=== PATIENT | male | born 1960 | race Native Hawaiian/Other Pacific Islander ===

== ENCOUNTER 2016-12-01 03:50 | Inpatient (IN) | payer OTHER ==
[2016-12-01 05:51] LABS: Basophils % (Auto) 0.7 % (0.0-1.8); Eosinophils % (Auto) 14.9 % (0.0-4.3); Mean Corpuscular HGB Conc 34 % (32-34); Mean Corpuscular Hemoglobin 31 pg (28-32); Mean Corpuscular Volume 91 fl (84-94); Platelet Count 231 K/mm3 (140-440); Red Blood Count 3.85 M/mm3 (3.65-5.03); Red Cell Distribution Width 13.2 % (13.2-15.2)
[2016-12-01 06:27] LABS: Anion Gap 19 mmol/L; Blood Urea Nitrogen 33 mg/dL (9-20); Calcium 9.2 mg/dL (8.4-10.2); Carbon Dioxide 26 mmol/L (22-30); Chloride 99.8 mmol/L (98-107); Glucose 162 mg/dL (75-100); Potassium 5.8 mmol/L (3.6-5.0); Sodium 139 mmol/L (137-145)
--- NOTE | 2016-12-01 06:38 | XRay Report ---
FINAL REPORT PROCEDURE: XR FOOT 2V LT TECHNIQUE: LEFT foot radiographs, AP and lateral views. HISTORY: Left foot swelling COMPARISON: No prior studies are available for comparison. FINDINGS: Fracture (s) and/or Dislocation(s): None . Alignment: Normal. Joint space(s): Normal. Soft tissues: Normal. Bone mineralization: Normal. Foreign bodies: None. Calcaneal spurring: None. IMPRESSION: Normal Examination.
[2016-12-01] MEDS ORDERED: UNASYN/NS 3 GM/100 ML 3 GM/100 ML BAG IV ONE (09:14)
[2016-12-01] MEDS ORDERED: VANCOMYCIN VIAL IV ONE (09:14)
--- NOTE | 2016-12-01 09:17 | Emergency Department Report ---
ED Extremity Problem HPI - General Chief complaint: Extremity Injury, Lower Stated complaint: LT FOOT INJURY Time Seen by Provider: 12/01/16 09:06 Source: patient, family Mode of arrival: Ambulatory Limitations: No Limitations - History of Present Illness Initial comments: 56-year-old male presents to the emergency Department with family for evaluation of a wound to his left foot. Patient has had a blister on the sole of his left foot for approximately 2 weeks. 2 days ago, the blister started to drain and the foot has become swollen. Family reports that it is beginning to turn red and purple. He reports mild pain to the foot. He denies fever. There are no other complaints. -: Gradual, week(s) (2) Location: left, other (foot) History of Same: No Radiation: none Severity scale (0 -10): 8 Quality: aching Consistency: constant Improves with: nothing Worsens with: nothing Associated Symptoms: denies other symptoms - Related Data Home Medications Medication Instructions Recorded Confirmed Last Taken glipiZIDE [Glucotrol] 10 mg PO BID 06/24/15 12/01/16 06/24/15 08:00 5mg metFORMIN 1,000 mg PO BID 06/24/15 12/01/16 Unknown Brimonidine Tartrate 0.2% 1 drop OS BID 12/01/16 12/01/16 Unknown Lisinopril 40 mg PO DAILY 12/01/16 12/01/16 Unknown Timolol 0.5% 1 drop OS BID 12/01/16 12/01/16 Unknown acetaZOLAMIDE 250 mg PO BID 12/01/16 12/01/16 Unknown Allergies Allergy/AdvReac Type Severity Reaction Status Date / Time No Known Allergies Allergy Verified 06/22/15 13:13 ED Review of Systems ROS: Stated complaint: RT FOOT INJURY Other details as noted in HPI Comment: All other systems reviewed and negative Musculoskeletal: as per HPI (L foot pain) Skin: as per HPI ED Past Medical Hx - Past Medical History Previous Medical History?: Yes Hx Hypertension: Yes Hx Congestive Heart Failure: No Hx Diabetes: Yes Hx Asthma: No Hx COPD: No Additional medical history: Rheumatic fever. valvular cardiac disease, Glaucoma - Surgical History Past Surgical History?: No - Family History Family history: no significant - Social History Smoking Status: Never Smoker Substance Use Type: None - Medications Home Medications: Home Medications Medication Instructions Recorded Confirmed Last Taken Type glipiZIDE [Glucotrol] 10 mg PO BID 06/24/15 12/01/16 06/24/15 08:00 History 5mg metFORMIN 1,000 mg PO BID 06/24/15 12/01/16 Unknown History Brimonidine Tartrate 0.2% 1 drop OS BID 12/01/16 12/01/16 Unknown History Lisinopril 40 mg PO DAILY 12/01/16 12/01/16 Unknown History Timolol 0.5% 1 drop OS BID 12/01/16 12/01/16 Unknown History acetaZOLAMIDE 250 mg PO BID 12/01/16 12/01/16 Unknown History ED Physical Exam - General Limitations: No Limitations General appearance: alert, in no apparent distress - Head Head exam: Present: atraumatic, normocephalic - Eye Eye exam: Present: normal appearance, PERRL, EOMI - ENT ENT exam: Present: normal exam, normal orophraynx, mucous membranes moist - Neck Neck exam: Present: normal inspection, full ROM. Absent: tenderness - Respiratory Respiratory exam: Present: normal lung sounds bilaterally. Absent: respiratory distress - Cardiovascular Cardiovascular Exam: Present: regular rate, normal rhythm, normal heart sounds - GI/Abdominal GI/Abdominal exam: Present: soft, normal bowel sounds. Absent: distended, tenderness - Extremities Exam Extremities exam: Present: full ROM, other (large blister on the plantar surface of the left foot across the MTP joints. This blister appears to have drained spontaneously. There is surrounding erythema and discoloration. Left foot is edematous. There is no streaking erythema proximally. Remainder of extremities are unremarkable.). Absent: tenderness - Back Exam Back exam: Present: normal inspection, full ROM. Absent: tenderness - Neurological Exam Neurological exam: Present: alert, oriented X3. Absent: motor sensory deficit - Skin Skin exam: Present: warm, dry ED Course Vital Signs 12/01/16 12/01/16 04:57 08:02 Temperature 87 F L 98.4 F Pulse Rate 87 79 Respiratory 16 18 Rate Blood Pressure 165/87 Blood Pressure 165/87 150/84 [Left] O2 Sat by Pulse 100 100 Oximetry ED Medical Decision Making - Lab Data Result diagrams: 12/01/16 05:39 12/01/16 05:39 - Medical Decision Making Lab results reviewed and discussed with the patient and family. Patient is being started on IV and biotics. He is to be admitted by the hospitalist for wound care and additional antibiotic therapy. - Differential Diagnosis foot cellulitis, diabetic foot ulcer Critical care attestation.: If time is entered above; I have spent that time in minutes in the direct care of this critically ill patient, excluding procedure time. ED Disposition Clinical Impression: Cellulitis of left foot excluding toes Diabetic foot ulcer Qualifiers: Diabetic foot ulcer location: midfoot Diabetes mellitus type: type 2 Laterality : left Non-pressure ulcer stage: limited to breakdown of skin Qualified Code(s) : E11.621 - Type 2 diabetes mellitus with foot ulcer Disposition: -09 OP ADMIT IP TO THIS HOSP Is pt being admited?: Yes Condition: Stable Instructions: Diabetes Mellitus Type 2 in Adults (ED) Time of Disposition: 09:16
[2016-12-01] MEDS ORDERED: VANCOMYCIN 1,250 MG in NACL 0.9% 250ML 250 ML IV ONE (09:45)
[2016-12-01] MEDS ORDERED: VANCOMYCIN PHARMACY TO DOSE IV SCH (10:00)
[2016-12-01] MEDS ORDERED: VANCOMYCIN/NS 1 GM/250 ML 1 GM/250 ML BAG IV SCH (10:00)
--- NOTE | 2016-12-01 11:29 | History and Physical Report ---
History of Present Illness Date of examination: 12/01/16 Date of admission: 12/01/16 09:17 History of present illness: This is a 56-year-old male presents to the emergency room with complaints of left foot pain that has progressively worsened over the past several days. Patient reports a blister that occurred on the ventral surface of the foot approximately 2 weeks ago. Patient reports drainage from that area approximately 2 days ago and progressive swelling of the left foot. Patient also reports pain and tenderness to the ventral and dorsal surfaces of the foot. Patient denies any fever or chills. No cough, shortness. No headache or visual disturbances. No chest pain or shortness of breath. Patient reports some erythema to the ventral surface of the foot only. Past History Past Medical History: diabetes, hypertension Past Surgical History: No surgical history Social history: no significant social history Family history: no significant family history Medications and Allergies Allergies Allergy/AdvReac Type Severity Reaction Status Date / Time No Known Allergies Allergy Verified 06/22/15 13:13 Home Medications Medication Instructions Recorded Confirmed Last Taken Type glipiZIDE [Glucotrol] 10 mg PO BID 06/24/15 12/01/16 06/24/15 08:00 History 5mg metFORMIN 1,000 mg PO BID 06/24/15 12/01/16 Unknown History Brimonidine Tartrate 0.2% 1 drop OS BID 12/01/16 12/01/16 Unknown History Lisinopril 40 mg PO DAILY 12/01/16 12/01/16 Unknown History Timolol 0.5% 1 drop OS BID 12/01/16 12/01/16 Unknown History acetaZOLAMIDE 250 mg PO BID 12/01/16 12/01/16 Unknown History Active Meds: Active Medications Vancomycin HCl (Vancomycin/Ns 1 Gm/250 Ml) 1 gm in 250 mls @ 166.667 mls/hr IV Q12H [facility] Vancomycin HCl 1,250 mg/ (Sodium Chloride) 275 mls @ 166.667 mls/hr IV ONCE.ED ONE Stop: 12/01/16 11:23 Last Admin: 12/01/16 10:45 Dose: 166.667 mls/hr Vancomycin HCl (Vancomycin Pharmacy To Dose) 1 each IV PKCONSULT [facility] PRN Reason: Protocol Review of Systems All systems: negative Exam - Constitutional Vitals: Temp Pulse Resp BP Pulse Ox 97.9 F 78 18 158/82 96 12/01/16 11:17 12/01/16 11:17 12/01/16 11:17 12/01/16 11:17 12/01/16 11:17 General appearance: Present: no acute distress, well-nourished - EENT Eyes: Present: PERRL ENT: hearing intact, clear oral mucosa - Neck Neck: Present: supple, normal ROM - Respiratory Respiratory effort: normal Respiratory: bilateral: CTA - Cardiovascular Heart Sounds: Present: S1 & S2. Absent: rub, click - Extremities Extremities: pulses symmetrical, abnormal (large blister on the plantar surface of the left foot across the MTP joints. This blister appears to have drained spontaneously. There is surrounding erythema and discoloration. Left foot is edematous. There is no streaking erythema proximally. Remainder of extremities are unremarkable.) Peripheral Pulses: within normal limits - Abdominal General gastrointestinal: Present: soft, non-tender, non-distended, normal bowel sounds Male genitourinary: Present: normal - Integumentary Integumentary: Present: clear, warm, dry - Musculoskeletal Musculoskeletal: gait normal, strength equal bilaterally - Psychiatric Psychiatric: appropriate mood/affect, intact judgment & insight - Neurologic Neurologic: CNII-XII intact, moves all extremities Results - Labs CBC & Chem 7: 12/01/16 05:39 12/01/16 05:39 Labs: Laboratory Last Values WBC 11.0 K/mm3 (4.5-11.0) 12/01/16 05:39 RBC 3.85 M/mm3 (3.65-5.03) 12/01/16 05:39 Hgb 12.0 gm/dl (11.8-15.2) 12/01/16 05:39 Hct 35.0 % (35.5-45.6) L 12/01/16 05:39 MCV 91 fl (84-94) 12/01/16 05:39 MCH 31 pg (28-32) 12/01/16 05:39 MCHC 34 % (32-34) 12/01/16 05:39 RDW 13.2 % (13.2-15.2) 12/01/16 05:39 Plt Count 231 K/mm3 (140-440) 12/01/16 05:39 Lymph % (Auto) 20.6 % (13.4-35.0) 12/01/16 05:39 [place] % (Auto) 6.4 % (0.0-7.3) 12/01/16 05:39 Eos % (Auto) 14.9 % (0.0-4.3) H 12/01/16 05:39 Baso % (Auto) 0.7 % (0.0-1.8) 12/01/16 05:39 Lymph # 2.3 K/mm3 (1.2-5.4) 12/01/16 05:39 [place] # 0.7 K/mm3 (0.0-0.8) 12/01/16 05:39 Eos # 1.6 K/mm3 (0.0-0.4) H 12/01/16 05:39 Baso # 0.1 K/mm3 (0.0-0.1) 12/01/16 05:39 Seg Neutrophils % 57.4 % (40.0-70.0) 12/01/16 05:39 Seg Neutrophils # 6.3 K/mm3 (1.8-7.7) 12/01/16 05:39 Sodium 139 mmol/L (137-145) 12/01/16 05:39 Potassium 5.8 mmol/L (3.6-5.0) H 12/01/16 05:39 Chloride 99.8 mmol/L (98-107) 12/01/16 05:39 Carbon Dioxide 26 mmol/L (22-30) 12/01/16 05:39 BUN 33 mg/dL (9-20) H 12/01/16 05:39 Creatinine 1.2 mg/dL (0.8-1.5) 12/01/16 05:39 Estimated GFR > 60 ml/min 12/01/16 05:39 BUN/Creatinine Ratio 27.50 % 12/01/16 05:39 Glucose 162 mg/dL (75-100) H 12/01/16 05:39 POC Glucose 180 (70-105) H 12/01/16 04:53 Calcium 9.2 mg/dL (8.4-10.2) 12/01/16 05:39 Assessment and Plan Assessment and plan: Left lower extremity abscess/cellulitis. Patient will be continued on IV antibiotics and monitor closely. Orthopedics consultation. Check MRI for further evaluation. Sepsis. We will follow-up blood cultures and lactic acid levels. Continue IV antibiotics. Diabetes mellitus type 2. Continue Accu-Cheks and sliding scale insulin. Hypertension. Resume antihypertensive medications of lisinopril.
[2016-12-01] MEDS ORDERED: MILK OF MAGNESIA PO PRN (11:30)
[2016-12-01] MEDS ORDERED: D50W (25GM) IV PRN (11:30)
[2016-12-01] MEDS ORDERED: TYLENOL PO PRN (11:30)
[2016-12-01] MEDS ORDERED: ZOFRAN IV PRN (11:30)
[2016-12-01] MEDS ORDERED: DULCOLAX PR PRN (11:30)
[2016-12-01] MEDS: NACL 0.9% 1000 ML 1,000 ML IV SCH (16:31)
[2016-12-01] MEDS: GLUCOPHAGE PO SCH (16:31)
[2016-12-01] MEDS: GLUCOTROL PO SCH (16:32)
[2016-12-01] MEDS: ZESTRIL PO SCH (16:32)
[2016-12-01] MEDS: LOVENOX SUB-Q SCH (16:33)
[2016-12-01] MEDS: VANCOMYCIN/NS 1 GM/250 ML 1 GM/250 ML BAG IV SCH (22:45)
[2016-12-01] MEDS: ALPHAGAN P 0.15% OS SCH (22:47)
[2016-12-01] MEDS: TIMOPTIC OS SCH (22:48)
[2016-12-01] MEDS: DIAMOX PO SCH (22:49)
[2016-12-02] MEDS: NACL 0.9% 1000 ML 1,000 ML IV SCH (07:56)
[2016-12-02] MEDS: GLUCOPHAGE PO SCH ×2 (08:00→17:13)
--- NOTE | 2016-12-02 09:24 | Admit Criteria Form ---
Admission Criteria Documentation: CELLULITIS Clinical Indications for Admission to Inpatient Care (Place 'X' for any and all applicable criteria): Admission is indicated for ANY ONE of the following(1)(2)(3)(4)(5): [X]I. Limb-threatening infection [X]II. High-risk comorbid condition as indicated by ANY ONE of the following: [X ]a) Uncontrolled diabetes (eg, HbA1c greater than 10% (0.1)) [ ]b) Cirrhosis [ ]c) Neutropenia [ ]d) Asplenia [ ]e) Immunosuppression [ ]f) Symptomatic heart failure [ ]III. Failure of outpatient therapy as indicated by ALL of the following: [ ]a) Progression or no improvement after adequate trial (minimum of 48 hours, with longer period for stable lower extremity infection) [ ]b) Adequate antibiotic regimen as indicated by use of ANY ONE of the following: [ ]i) First-generation cephalosporin (e.g., cephalexin) [ ]ii) Antistaphylococcal penicillin (e.g., dicloxacillin) [ ]iii) Penicillin-allergic patient regimen (clindamycin, extended-spectrum fluoroquinolone, or doxycycline) [ ]iv) Resistant organism (eg, methicillin-resistant Staphylococcus aureus) regimen (6) [ ]c) Outpatient intravenous therapy regimen is not appropriate due to ANY ONE of the following. (7)(8)(9)(10): [ ]i) It was tried and was not successful (eg, progression of infection). [ ]ii) It is not available or cannot be arranged in a clinically appropriate time frame (e.g., the next day). [ ]iii) Clinical presentation (eg, acuity of infection, rapidity of progression, confirmed or suspected bacteremia) is judged to require ALL of the following: [ ]1) Immediate initiation of intravenous therapy ( eg, cannot wait for next day) [ ]2) Intensity of patient monitoring and observation (eg, vital sign measurement, checks for infection progression) that cannot be provided at other than inpatient level of care [ ]IV. Mental status changes [ ]V. Bacteremia [ ]. Hemodynamic instability [ ]VII. Suspected necrotizing soft tissue infection (e.g., gas in tissue)(11)( 12) [ ]VIII. Orbital infection (13)(14) [ ]IX. Associated surgical procedure (e.g., abscess drainage, debridement) not amenable to outpatient, emergency department, or observation care [ ]X. Cutaneous gangrene [ ]XI. High fever (temperature greater than 39.5 degrees C (103.1 degrees F) (oral)) not responsive to outpatient, emergency department, or observation care therapy [ ]XIII. Inpatient admission required rather than observation care (Also use Cellulitis: Observation Care as appropriate) because of ANY ONE of the following : [ ]a) Periorbital or perineal infection that is severe or worsening [ ]b) Severe pain requiring acute inpatient management [ ]c) IV fluid to replace significant ongoing (e.g., for over 24 hours) losses (greater than 3L/m2 per day) [ ]d) Compartment syndrome monitoring (17) [ ]e) Strict or protective (eg, laminar flow) isolation [ ]f) Urgent debridement or skin grafting [ ]g) Bone or joint debridement [ ]h) Immediate inpatient surgery [ ]i) Other condition, treatment or monitoring requiring inpatient admission Extended stay beyond goal length of stay may be needed for (1)(18): [ ]a) Necrotizing soft tissue infection or fasciitis [ ]b) Gram-negative infection [ ]c) Methicillin-resistant Staphylococcal aureus (MRSA) infection [ ]d) Peripheral venous insufficiency with cellulitis [ ]e) Extensive edema [ ]f) Sepsis or continued Hemodynamic instability [ ]g) Continued high fever or mental status change [ ]h) Bacteremia [ ]i) Active serious comorbid conditions ( eg, heart failure, renal insufficiency) The original [employer] content created by [employer] has been revised. The portions of the content which have been revised are identified through the use of italic text or in bold, and [facility] has neither reviewed nor approved the modified material. All other unmodified content is copyright [email or web address] Please see references footnoted in the original [facility] [employer] edition 2016 Admission Criteria Met: Yes
--- NOTE | 2016-12-02 10:18 | Progress Note ---
Assessment and Plan Assessment and plan: Left lower extremity abscess/cellulitis. Patient will be continued on IV antibiotics and monitor closely. Orthopedics consultation pending. Check MRI for further evaluation. Sepsis. We will follow-up blood cultures and lactic acid levels. Continue IV antibiotics. Diabetes mellitus type 2. Continue Accu-Cheks and sliding scale insulin. Hypertension. Continue antihypertensive medications of lisinopril. History Interval history: No new issues overnight. Hospitalist Physical - Constitutional Vitals: Temp Pulse Resp BP Pulse Ox 97.7 F 70 16 186/84 98 12/02/16 08:00 12/02/16 08:00 12/02/16 08:00 12/02/16 08:00 12/02/16 08:00 General appearance: Present: no acute distress, well-nourished - EENT Eyes: Present: PERRL, EOM intact ENT: hearing intact, clear oral mucosa, dentition normal - Neck Neck: Present: supple, normal ROM - Respiratory Respiratory effort: normal Respiratory: bilateral: CTA - Cardiovascular Rhythm: regular Heart Sounds: Present: S1 & S2. Absent: gallop, rub - Extremities Extremities: no ischemia, No edema, Full ROM - Abdominal General gastrointestinal: soft, non-tender, non-distended, normal bowel sounds - Integumentary Integumentary: Present: clear, warm, dry - Neurologic Neurologic: CNII-XII intact, moves all extremities Results - Labs CBC & Chem 7: 12/01/16 05:39 12/01/16 05:39 Labs: Laboratory Last Values WBC 11.0 K/mm3 (4.5-11.0) 12/01/16 05:39 RBC 3.85 M/mm3 (3.65-5.03) 12/01/16 05:39 Hgb 12.0 gm/dl (11.8-15.2) 12/01/16 05:39 Hct 35.0 % (35.5-45.6) L 12/01/16 05:39 MCV 91 fl (84-94) 12/01/16 05:39 MCH 31 pg (28-32) 12/01/16 05:39 MCHC 34 % (32-34) 12/01/16 05:39 RDW 13.2 % (13.2-15.2) 12/01/16 05:39 Plt Count 231 K/mm3 (140-440) 12/01/16 05:39 Lymph % (Auto) 20.6 % (13.4-35.0) 12/01/16 05:39 [place] % (Auto) 6.4 % (0.0-7.3) 12/01/16 05:39 Eos % (Auto) 14.9 % (0.0-4.3) H 12/01/16 05:39 Baso % (Auto) 0.7 % (0.0-1.8) 12/01/16 05:39 Lymph # 2.3 K/mm3 (1.2-5.4) 12/01/16 05:39 [place] # 0.7 K/mm3 (0.0-0.8) 12/01/16 05:39 Eos # 1.6 K/mm3 (0.0-0.4) H 12/01/16 05:39 Baso # 0.1 K/mm3 (0.0-0.1) 12/01/16 05:39 Seg Neutrophils % 57.4 % (40.0-70.0) 12/01/16 05:39 Seg Neutrophils # 6.3 K/mm3 (1.8-7.7) 12/01/16 05:39 Sodium 139 mmol/L (137-145) 12/01/16 05:39 Potassium 5.8 mmol/L (3.6-5.0) H 12/01/16 05:39 Chloride 99.8 mmol/L (98-107) 12/01/16 05:39 Carbon Dioxide 26 mmol/L (22-30) 12/01/16 05:39 BUN 33 mg/dL (9-20) H 12/01/16 05:39 Creatinine 1.2 mg/dL (0.8-1.5) 12/01/16 05:39 Estimated GFR > 60 ml/min 12/01/16 05:39 BUN/Creatinine Ratio 27.50 % 12/01/16 05:39 Glucose 162 mg/dL (75-100) H 12/01/16 05:39 POC Glucose 116 (70-105) H 12/02/16 06:01 Calcium 9.2 mg/dL (8.4-10.2) 12/01/16 05:39
[2016-12-02] MEDS: VANCOMYCIN/NS 1 GM/250 ML 1 GM/250 ML BAG IV SCH (10:50)
[2016-12-02] MEDS ORDERED: PNEUMOVAX 23 IM ONE (12:00)
[2016-12-02] MEDS: UNASYN/NS 3 GM/100 ML 3 GM/100 ML BAG IV SCH ×3 (12:00→23:06)
[2016-12-02 12:55] LABS: Anion Gap 16 mmol/L; Blood Urea Nitrogen 20 mg/dL (9-20); Calcium 8.4 mg/dL (8.4-10.2); Carbon Dioxide 24 mmol/L (22-30); Chloride 106.3 mmol/L (98-107); Glucose 184 mg/dL (75-100); Potassium 5.1 mmol/L (3.6-5.0); Sodium 141 mmol/L (137-145)
[2016-12-02 12:59] LABS: Hematocrit 35.1 % (35.5-45.6); Hemoglobin 11.9 gm/dl (11.8-15.2); Mean Corpuscular HGB Conc 34 % (32-34); Mean Corpuscular Hemoglobin 31 pg (28-32); Mean Corpuscular Volume 92 fl (84-94); Platelet Count 211 K/mm3 (140-440); Red Blood Count 3.83 M/mm3 (3.65-5.03); Red Cell Distribution Width 13.4 % (13.2-15.2); White Blood Count 7.6 K/mm3 (4.5-11.0)
[2016-12-02 14:34] LABS: Basophils % (Manual) 0 % (0.0-1.8); Blastocytes % (Manual) 0 %; Diff Status Complete; Platelet Estimate Consistent w Auto; RBC Morphology Normal
[2016-12-02] MEDS: LOVENOX SUB-Q SCH (15:28)
[2016-12-02] MEDS: DIAMOX PO SCH ×2 (15:29→22:57)
[2016-12-02] MEDS: ZESTRIL PO SCH (15:29)
[2016-12-02] MEDS: TIMOPTIC OS SCH ×2 (15:30→22:58)
[2016-12-02] MEDS: ALPHAGAN P 0.15% OS SCH ×2 (15:31→22:57)
[2016-12-02] MEDS: GLUCOTROL PO SCH ×2 (17:13→17:14)
--- NOTE | 2016-12-02 18:16 | Consultation ---
History of Present Illness - [facility] Consult date: 12/02/16 History of present illness: 56-year-old male presents to the emergency room with complaints of left foot pain that has progressively worsened over the past several days. Patient reports a blister that occurred on the ventral surface of the foot approximately 2 weeks ago. Patient reports drainage from that area approximately 2 days ago and progressive swelling of the left foot. Patient also reports pain and tenderness to the ventral and dorsal surfaces of the foot. Patient denies any fever or chills. Past History Past Medical History: diabetes, hypertension Past Surgical History: No surgical history Social history: no significant social history Family history: no significant family history Medications and Allergies Allergies Allergy/AdvReac Type Severity Reaction Status Date / Time No Known Allergies Allergy Verified 06/22/15 13:13 Home Medications Medication Instructions Recorded Confirmed Last Taken Type glipiZIDE [Glucotrol] 10 mg PO BID 06/24/15 12/01/16 06/24/15 08:00 History 5mg metFORMIN 1,000 mg PO BID 06/24/15 12/01/16 Unknown History Brimonidine Tartrate 0.2% 1 drop OS BID 12/01/16 12/01/16 Unknown History Lisinopril 40 mg PO DAILY 12/01/16 12/01/16 Unknown History Timolol 0.5% 1 drop OS BID 12/01/16 12/01/16 Unknown History acetaZOLAMIDE 250 mg PO BID 12/01/16 12/01/16 Unknown History Active Meds: Active Medications Acetaminophen (Tylenol) 650 mg PO Q4H PRN PRN Reason: Pain MILD(1-3)/Fever >100.5/[place] Acetazolamide (Diamox) 250 mg PO BID [facility] Last Admin: 12/02/16 15:29 Dose: 250 mg Bisacodyl (Dulcolax) 10 mg SC QDAY PRN PRN Reason: Constipation unrelieved by MOM Brimonidine Tartrate (Alphagan P 0.15%) 1 drops OS BID [facility] Last Admin: 12/02/16 15:31 Dose: 1 drops Dextrose (D50w (25gm)) 50 ml IV PRN PRN PRN Reason: Hypoglycemia Enoxaparin Sodium (Lovenox) 40 mg SUB-Q Q24H [facility] Last Admin: 12/02/16 15:28 Dose: 40 mg Glipizide (Glucotrol) 10 mg PO BIDDIAB [facility] Last Admin: 12/02/16 17:14 Dose: Not Given Vancomycin HCl (Vancomycin/Ns 1 Gm/250 Ml) 1 gm in 250 mls @ 166.667 mls/hr IV Q12H [facility] Last Admin: 12/02/16 10:50 Dose: 166.667 mls/hr Sodium Chloride (Nacl 0.9% 1000 Ml) 1,000 mls @ 75 mls/hr IV DIRECT [facility] Last Admin: 12/02/16 07:56 Dose: 75 mls/hr Ampicillin Sodium/Sulbactam Sodium (Unasyn/Ns 3 Gm/100 Ml) 3 gm in 100 mls @ 200 mls/hr IV Q6HR [facility] Last Admin: 12/02/16 17:56 Dose: 200 mls/hr Insulin Human Regular (Novolin R) 0 units SUB-Q ACHS [facility] PRN Reason: Protocol Last Admin: 12/01/16 22:51 Dose: Not Given Lisinopril (Zestril) 40 mg PO QDAY [facility] Last Admin: 12/02/16 15:29 Dose: 40 mg Magnesium Hydroxide (Milk Of Magnesia) 30 ml PO Q4H PRN PRN Reason: Constipation Metformin HCl (Glucophage) 1,000 mg PO BIDDIAB [facility] Last Admin: 12/02/16 17:13 Dose: 1,000 mg Ondansetron HCl (Zofran) 4 mg IV Q8H PRN PRN Reason: N/V unrelieved by Reglan Timolol Maleate (Timoptic) 1 drops OS BID [facility] Last Admin: 12/02/16 15:30 Dose: 1 drops Vancomycin HCl (Vancomycin Pharmacy To Dose) 1 each IV PKCONSULT [facility] PRN Reason: Protocol Physical Examination - Physical exam Narrative exam: Physical examination the right forefoot here he was noted to have a large blister along the plantar surface with minimal drainage noted, the eschar was debrided at the bedside and there were no fluctuance noted, the blister appeared to be Superficial in nature, there is no erythema noted Assessment and Plan Assessment -cellulitis with blister formation right foot appears to be resolving Recommendations -continue antibiotics and observation patient may be discharged at any time and can be followed in our office in 1 week
[2016-12-03] MEDS: VANCOMYCIN/NS 1 GM/250 ML 1 GM/250 ML BAG IV SCH ×2 (00:43→10:44)
[2016-12-03] MEDS: UNASYN/NS 3 GM/100 ML 3 GM/100 ML BAG IV SCH ×2 (06:24→12:30)
[2016-12-03] MEDS: NACL 0.9% 1000 ML 1,000 ML IV SCH (06:25)
[2016-12-03 08:30] VITALS: BP 164/82
[2016-12-03] MEDS: GLUCOPHAGE PO SCH (08:33)
[2016-12-03] MEDS: GLUCOTROL PO SCH (08:34)
[2016-12-03 09:02] LABS: Anion Gap 17 mmol/L; Blood Urea Nitrogen 18 mg/dL (9-20); Calcium 8.1 mg/dL (8.4-10.2); Carbon Dioxide 20 mmol/L (22-30); Chloride 107.9 mmol/L (98-107); Glucose 138 mg/dL (75-100); Potassium 4.5 mmol/L (3.6-5.0); Sodium 140 mmol/L (137-145)
[2016-12-03] MEDS: DIAMOX PO SCH (10:34)
[2016-12-03] MEDS: ZESTRIL PO SCH (10:34)
[2016-12-03] MEDS: ALPHAGAN P 0.15% OS SCH (10:35)
[2016-12-03] MEDS: TIMOPTIC OS SCH (10:35)
--- NOTE | 2016-12-03 12:42 | Discharge Summary ---
Providers - Providers Date of Admission: 12/01/16 09:17 Date of discharge: 12/03/16 Attending physician: ZARI LANGFORD 12/01/16 11:30 Consult to Physician [CONS] Routine Consulting Provider: KD GARCIA Reason For Exam: dm foot ulcer Place consult to:: dr. 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 Check MRI for further evaluation=> pt didnt want Sepsis skin. We will follow-up blood cultures and lactic acid levels. Continue IV antibiotics. Diabetes mellitus type 2. Continue Accu-Cheks and sliding scale insulin. Hypertension. Continue antihypertensive medications of lisinopril. Per orthopedic surgeon, Dr. Garcia: "Assessment and Plan Assessment -cellulitis with blister formation right foot appears to be resolving Recommendations -continue antibiotics and observation patient may be discharged at any time and can be followed in our office in 1 week" Disposition: DC-01 TO HOME OR SELFCARE Time spent for discharge: 31 minutes Core Measure Documentation - Palliative Care Palliative Care/ Comfort Measures: Not Applicable - Core Measures Any of the following diagnoses?: none - VTE Discharge Requirements Deep Vein Thrombosis/Pulmonary Embolism Present on Admission: No Has pt received <5 days of overlap therapy or INR<2.0: No Anticoagulant overlap therapy prescribed at discharge: No Contraindication No Overlap Therapy order at DC: Not Indicated Exam - Physical Exam Narrative exam: GEN: WDWN, NAD, AWAKE, ALERT, ORIENTATED x 3 CVS: RRR, NORMAL S1S2 LUNGS/CHEST: CTA B, NORMAL CHEST EXPANSION B, GOOD AIR ENTRY B ABD: SOFT, NTND, GBS, NO REBOUND OR GUARDING EXT/SKIN: Right forefoot here he was noted to have a large blister along the plantar surface with minimal drainage noted, the eschar was debrided at the bedside and there were no fluctuance noted, the blister appeared to be Superficial in nature, there is no erythema noted MSK: FROM X 4 EXTREMITIES NEURO: CN 2-12 GROSSLY INTACT, NO FOCAL DEFICITS PSY: CALM - Constitutional Vitals: Temp Pulse Resp BP Pulse Ox 98.2 F 74 16 164/82 98 12/03/16 08:00 12/03/16 08:00 12/03/16 08:00 12/03/16 08:00 12/03/16 08:00 Plan Activity: other (no strenous activites until cleared by PCP. ) Weight Bearing Status: Partial Weight Bearing Diet: low salt, diabetic Special Instructions: record daily BP diary, record blood sugar diary Follow up with: PRIMARY MD GURU [Primary Care Provider] - 7 Days KD GARCIA MD [Staff Physician] - 7 Days Prescriptions: Clindamycin [Clindamycin CAP] 300 mg PO Q8H #5 day Levofloxacin [Levaquin TAB] 500 mg PO QDAY #5 tablet
== END 2016-12-03 14:15 | disposition home or self-care (01) | DRG 872 ==
LOC: ED 03:50 → 3A 09:17
PROVIDERS: ADMIT Hospitalist; ATTEND Internal Medicine
DX: A41.9 Sepsis, unspecified organism (principal); L03.116 Cellulitis of left lower limb; I10 Essential (primary) hypertension; E11.9 Type 2 diabetes mellitus without complications; Z23 Encounter for immunization
CPT/HCPCS: 36415; 80048; 82962; 85007; 85025; 86850; 86900; 86901; 87040; 90732; 96365; J0295; J1650; J1815; J3370; J7030; J7050